=== PATIENT | female | born 1995 | race Two or more races ===

== ENCOUNTER 2020-11-24 16:17 | Emergency (ER) | payer MEDICAID ==
[~2020-11-24] VITALS: Ht 170.2 cm; Wt 75.0 kg
[2020-11-24] MEDS ORDERED: ONDANSETRON HCL 4MG/2ML INJ IV STA (16:49)
[2020-11-24] MEDS ORDERED: SODIUM CHLORIDE 0.9% 1,000 ML IV ONE (17:00)
[2020-11-24] MEDS ORDERED: LORAZEPAM 0.5MG TABLET PO ONE (18:30)
[2020-11-24 21:00] VITALS: BP 127/87
== END 2020-11-24 21:14 | disposition home or self-care (01) ==
LOC: ER 16:17
DX: F14.129 Cocaine abuse with intoxication, unspecified (principal); E86.0 Dehydration; R11.2 Nausea with vomiting, unspecified
CPT/HCPCS: 96361; 96374; 99285; J2405; J7030; Z7610